=== PATIENT | male | born 1945 | race Caucasian/White ===

== ENCOUNTER 2023-06-13 07:30 | Day surgery (SDC) | payer MEDICARE ==
[~2023-06-13] VITALS: Ht 177.8 cm; Wt 67.6 kg
[2023-06-13] VITALS (12 sets, daily range): BP systolic 131–154; BP diastolic 50–88; PULSE 64–74; RESP 16–20; TEMP 97.7; O2SAT 91–100
[2023-06-13] MEDS ORDERED: CEPH-585 PO (07:59)
[2023-06-13] MEDS ORDERED: ALPR1TAB7 PO (07:59)
[2023-06-13] MEDS ORDERED: HYDR-3964 PO (07:59)
[2023-06-13] MEDS ORDERED: albumin 25% 100mL bottle x 1 IV PRN (08:00)
[2023-06-13] MEDS ORDERED: normal saline 1000ml 1,000 ML IV PRN (08:00)
[2023-06-13 08:33] LABS: BASOPHILS # (AUTO) 0.1 X10'3 (0-0.2); BASOPHILS % (AUTO) 0.6 % (0-1); EOSINOPHILS # (AUTO) 0.1 X10'3 (0-0.9); HEMOGLOBIN 8.8 g/dl (14.0-17.9); INR 1.1 INR; MONOCYTES # (AUTO) 0.6 X10'3 (0-0.9); NEUTROPHILS # (AUTO) 8.1 X10'3 (1.8-7.7); PROTHROMBIN TIME 11.4 SECONDS (9.0-12.0); RED CELL DISTRIBUTION WIDTH 16.6 % (11.5-14.5); WHITE BLOOD COUNT 10.3 X10'3 (4.5-11.0)
[2023-06-13 08:35] LABS: EOSINOPHILS % (AUTO) 0.8 % (0-6); HEMATOCRIT 28.1 % (42.0-52.0); LYMPHOCYTES # (AUTO) 1.5 X10'3 (1.1-4.8); LYMPHOCYTES % (AUTO) 14.4 % (21-51); MEAN CORPUSCULAR HEMOGLOBIN 29.6 PG (27.0-31.0); MEAN CORPUSCULAR HGB CONC 31.3 g/dL (33.0-36.5); MEAN CORPUSCULAR VOLUME 94.7 FL (78-98); MEAN PLATELET VOLUME 7.4 FL (7.4-10.4); MONOCYTES % (AUTO) 5.8 % (2-12); NEUTROPHILS % (AUTO) 78.4 % (42-75); PLATELET COUNT 740 X10'3 (140-440); RED BLOOD COUNT 2.97 X10'6 (4.70-6.10)
[2023-06-13 09:03] LABS: ANISOCYTOSIS 1+; PLATELET ESTIMATE INCREASED; POIKILOCYTOSIS FEW; STOMATOCYTES 1+
[2023-06-13 09:04] LABS: HYPOCHROMASIA 1+
[2023-06-13] MEDS ORDERED: LIDOcaine 1% 30ml preserv. free vial ONE (10:38)
[2023-06-13] MEDS ORDERED: gelatin sponge, absorbable (Gelfoam 12-7MM) sponge TP ONE (10:40)
[2023-06-13] MEDS ORDERED: midazolam 1 mg/ML 2ml injection ONE (10:40)
[2023-06-13] MEDS ORDERED: fentaNYL/PF 50MCG/1 ML 2ML syringe ONE (10:40)
[2023-06-13] MEDS ORDERED: HYDROcodone/acetaminophen 5mg/325mg tablet PO PRN ×2 (11:25)
== END 2023-06-13 12:35 | disposition home or self-care (01) ==
LOC: SSTAY O 07:30
PROVIDERS: ATTEND Radiology Vascular & Interventional Radiology
DX: C78.01 Secondary malignant neoplasm of right lung (principal); I10 Essential (primary) hypertension; J44.9 Chronic obstructive pulmonary disease, unspecified; E78.5 Hyperlipidemia, unspecified; F41.9 Anxiety disorder, unspecified; Z79.891 Long term (current) use of opiate analgesic; Z79.899 Other long term (current) drug therapy; Z98.890 Other specified postprocedural states
CPT/HCPCS: 32408; 36415; 85025; 85610; 88305; 88341; 88342; 99152; 99153; J2250; J3010; J3490; J7030; 77012; 85008; A4615

== ENCOUNTER 2023-11-05 02:38 | Emergency (ER) | payer MEDICARE ==
[2023-11-05] VITALS (13 sets, daily range): BP systolic 87–132; BP diastolic 49–67; PULSE 72–87; RESP 12–26; TEMP 97–100
[~2023-11-05] VITALS: Ht 177.8 cm; Wt 64.9 kg
[~2023-11-05 02:38] MED LIST: ALPR1TAB7 PO; ATOR20TA PO; HYDR-3964 PO; HYDR-3972 PO
[2023-11-05] MEDS: acetaminophen 650mg rectal suppository RC STA (03:28)
[2023-11-05] MEDS ORDERED: AMLO10TA13 PO (03:39)
[2023-11-05] MEDS ORDERED: PRAV20TA4 PO (03:39)
[2023-11-05 03:59] LABS: BASOPHILS % (AUTO) 0.4 % (0-1); EOSINOPHILS % (AUTO) 0.2 % (0-6); HEMATOCRIT 23.3 % (42.0-52.0); HEMOGLOBIN 7.6 g/dl (14.0-17.9); LYMPHOCYTES % (AUTO) 8.6 % (21-51); MEAN CORPUSCULAR HEMOGLOBIN 31.6 PG (27.0-31.0); MEAN CORPUSCULAR HGB CONC 32.7 g/dL (33.0-36.5); MEAN CORPUSCULAR VOLUME 96.9 FL (78-98); MEAN PLATELET VOLUME 7.3 FL (7.4-10.4); MONOCYTES # (AUTO) 0.7 X10'3 (0-0.9); MONOCYTES % (AUTO) 6.2 % (2-12); NEUTROPHILS # (AUTO) 9.6 X10'3 (1.8-7.7); NEUTROPHILS % (AUTO) 84.6 % (42-75); PLATELET COUNT 375 X10'3 (140-440); RED BLOOD COUNT 2.41 X10'6 (4.70-6.10); RED CELL DISTRIBUTION WIDTH 17.6 % (11.5-14.5); WHITE BLOOD COUNT 11.4 X10'3 (4.5-11.0)
[2023-11-05 04:17] LABS: ALBUMIN 2.8 G/DL (3.4-5.0); ANION GAP 8 (8-16); BLOOD UREA NITROGEN 24 MG/DL (7-18); BUN/CREATININE RATIO 18.5 (10.0-20.0); CALCIUM 8.5 MG/DL (8.5-10.1); CHLORIDE 105 MMOL/L (99-107); CREATINE KINASE 122 U/L (39-308); GLUCOSE 127 MG/DL (70-104); MAGNESIUM 2.1 MG/DL (1.5-2.4); POTASSIUM 4.4 MMOL/L (3.5-5.1); SODIUM 139 MMOL/L (135-145); TOTAL CARBON DIOXIDE 26.4 MMOL/L (24-32); eCRCL 44 ML/MIN; eGFR 54 ML/MIN
[2023-11-05] MEDS: normal saline 1000ML IV soln IV ONE (04:25)
[2023-11-05] MEDS: morphine 2 MG/ML inj. syringe IV ONE (04:34)
[2023-11-05 04:35] LABS: ANISOCYTOSIS 1+; PLATELET ESTIMATE NORMAL; TOTAL CELLS COUNTED 100
[2023-11-05 04:36] LABS: HYPERSEGMENTED NEUTROPHILS 2+
[2023-11-05 04:41] LABS: ACANTHOCYTES FEW; ELLIPTOCYTES FEW; POIKILOCYTOSIS FEW
[2023-11-05] MEDS ORDERED: iohexol 350 MG/ML 50ML vial IV ONE (05:38)
[2023-11-05] MEDS ORDERED: iohexol 350MG/ML 100ml bottle IV ONE (05:38)
[2023-11-05 05:39] LABS: ALANINE AMINOTRANSFERASE 12 U/L (12-78); ASPARTATE AMINO TRANSFERASE 17 U/L (10-37); PRO BRAIN NATRIURETIC PEPTIDE 365 PG/ML (0-450)
[2023-11-05] MEDS: vancomycin/NS 1 GM ADD-VANTAGE 250 ML IV ONE (06:40)
[2023-11-05 07:01] LABS: ABG BASE EXCESS -1.6 mmol/L (-2.0-2.0); ABG HCO3 21.9 mmol/L (22.0-26.0); ABG OXYGEN SATURATION 93.8 % (94-97); ABG PCO2 (T) 31.7 mmHg (35.0-48.0); ABG PH (T) 7.458 (7.340-7.440); ABG PO2 (T) 68.9 mmHg (75.0-100.0); ALLEN'S TEST POSITIVE; FCOHb 0.8 % (0.0-3.9); FHHb 6.1 % (0.0-5.0); FMetHb 0.4 % (0.0-1.5); FO2Hb 92.7 % (94-97); MODE ROOM AIR; TOTAL HEMOGLOBIN 7.1 G/dl (14.0-17.9)
[2023-11-05] MEDS: piperacillin/tazo 3.375gm/50ml 50 ML IV ONE (08:36)
[2023-11-05] MEDS: morphine 4 MG/ML inj SYRINge IV ONE ×3 (08:39→16:04)
[2023-11-05 09:27] LABS: BILIRUBIN,URINE NEGATIVE (Neg); CLARITY,URINE CLEAR (Clear); COLOR,URINE YELLOW (Yellow); GLUCOSE, URINE NEGATIVE (Neg); KETONES,URINE NEGATIVE (Neg); LEUKOCYTE ESTERASE ,URINE NEGATIVE (Neg); NITRITES, URINE NEGATIVE (Neg); OCCULT BLOOD,URINE NEGATIVE (Neg); PROTEIN,URINE NEGATIVE (Neg); UROBILINOGEN,URINE 0.2 E.U/dL (0.2-1.0)
[2023-11-05 09:40] LABS: UA COLLECTION TYPE URINAL
[2023-11-05] MEDS: normal saline 1000ml 1,000 ML IV ONE (12:37)
[2023-11-05 13:06] LABS: INR 1.1 INR; PROTHROMBIN TIME 11.4 SECONDS (9.0-12.0)
[2023-11-05] MEDS: oxyCODONE/APAP 10/325mg tablet PO ONE ×2 (18:09→21:43)
[2023-11-06] VITALS (8 sets, daily range): BP systolic 95–120; BP diastolic 46–58; PULSE 74–90; RESP 15–20; TEMP 98.2–98.9; O2SAT 97
[2023-11-06 02:44] LABS: BASOPHILS % (AUTO) 0.5 % (0-1); EOSINOPHILS # (AUTO) 0.1 X10'3 (0-0.9); EOSINOPHILS % (AUTO) 1.2 % (0-6); LYMPHOCYTES # (AUTO) 1.1 X10'3 (1.1-4.8); MEAN CORPUSCULAR HEMOGLOBIN 31.6 PG (27.0-31.0); MEAN CORPUSCULAR VOLUME 95.7 FL (78-98); MEAN PLATELET VOLUME 7.2 FL (7.4-10.4); MONOCYTES % (AUTO) 9.1 % (2-12); NEUTROPHILS # (AUTO) 8.6 X10'3 (1.8-7.7); NEUTROPHILS % (AUTO) 79.2 % (42-75); PLATELET COUNT 282 X10'3 (140-440); RED BLOOD COUNT 2.06 X10'6 (4.70-6.10); RED CELL DISTRIBUTION WIDTH 17.5 % (11.5-14.5); WHITE BLOOD COUNT 10.9 X10'3 (4.5-11.0)
[2023-11-06] MEDS: ondansetron/PF 4mg/2ml inj IV STA (02:56)
[2023-11-06] MEDS: morphine 4 MG/ML inj SYRINge IV STA (02:57)
[2023-11-06 02:59] LABS: HEMOGLOBIN 6.5 g/dl (14.0-17.9)
[2023-11-06 03:00] LABS: HEMATOCRIT 19.7 % (42.0-52.0)
[2023-11-06 03:10] LABS: APTT 32 SECONDS (22-32); PROTHROMBIN TIME 11.2 SECONDS (9.0-12.0)
[2023-11-06] MEDS: morphine 4 MG/ML inj SYRINge IV ONE ×2 (07:25→10:41)
[2023-11-06 10:47] LABS: BASOPHILS # (AUTO) 0.1 X10'3 (0-0.2); BASOPHILS % (AUTO) 0.5 % (0-1); EOSINOPHILS # (AUTO) 0.1 X10'3 (0-0.9); EOSINOPHILS % (AUTO) 1.1 % (0-6); HEMATOCRIT 26.4 % (42.0-52.0); HEMOGLOBIN 8.8 g/dl (14.0-17.9); LYMPHOCYTES # (AUTO) 0.8 X10'3 (1.1-4.8); LYMPHOCYTES % (AUTO) 8.2 % (21-51); MEAN CORPUSCULAR HEMOGLOBIN 29.1 PG (27.0-31.0); MEAN CORPUSCULAR HGB CONC 33.3 g/dL (33.0-36.5); MEAN CORPUSCULAR VOLUME 87.3 FL (78-98); MEAN PLATELET VOLUME 7.3 FL (7.4-10.4); MONOCYTES # (AUTO) 0.9 X10'3 (0-0.9); MONOCYTES % (AUTO) 8.4 % (2-12); NEUTROPHILS # (AUTO) 8.4 X10'3 (1.8-7.7); NEUTROPHILS % (AUTO) 81.8 % (42-75); PLATELET COUNT 276 X10'3 (140-440); RED BLOOD COUNT 3.02 X10'6 (4.70-6.10); RED CELL DISTRIBUTION WIDTH 23.3 % (11.5-14.5); WHITE BLOOD COUNT 10.3 X10'3 (4.5-11.0)
== END 2023-11-06 12:55 ==
LOC: ER 02:39
DX: S70.11XA Contusion of right thigh, initial encounter (principal); S30.0XXA Contusion of lower back and pelvis, initial encounter; S70.12XA Contusion of left thigh, initial encounter; D68.9 Coagulation defect, unspecified; I11.0 Hypertensive heart disease with heart failure; I50.9 Heart failure, unspecified; E78.00 Pure hypercholesterolemia, unspecified; Z79.899 Other long term (current) drug therapy; Z79.1 Long term (current) use of non-steroidal anti-inflammatories (NSAID); X58.XXXA Exposure to other specified factors, initial encounter; Y93.89 Activity, other specified; Y92.89 Other specified places as the place of occurrence of the external cause; Y99.8 Other external cause status
CPT/HCPCS: 36415; 36430; 36600; 71045; 75635; 80048; 81003; 82550; 82803; 83605; 83735; 83880; 84145; 84450; 84460; 84484; 85007; 85018; 85025; 85610; 85730; 86885; 86900; 86901; 86920; 87040; 93005; 93926; 93971; 96361; 96365; 96375; 96376; 99285; J2270; J2405; J2543; J3370; J3490; J7030; J7040; J7050; P9016; P9059; Q9967; A4615

== ENCOUNTER 2024-05-06 17:46 | Emergency (ER) | payer MEDICARE ==
[~2024-05-06] VITALS: Ht 177.8 cm; Wt 58.8 kg
[~2024-05-06 17:46] MED LIST changes: +ACET-1008 PO; -ATOR20TA PO; +BISA-111 PO; +CYAN-104 PO; +DOXY-1 PO; +FOLI1TAB27 PO; +GABA-535 PO; -HYDR-3964 PO; -HYDR-3972 PO; +LINE600T14 PO; +MAGN400O6 PO; +MIDO5TAB4 PO; +MULT-1249 PO; +OXYC20TA55 PO; +SENN-267 PO
[2024-05-06] MEDS ORDERED: tranexamic acid inj. 1,000 MG in normal saline 100ml IV soln 90 ML IV ONE (18:00)
[2024-05-06] MEDS: ondansetron/PF 4mg/2ml inj IV ONE ×2 (18:05→18:11)
[2024-05-06] MEDS: tranexamic acid 1gm/0.7% sal. 100 ML IV ONE (18:10)
[2024-05-06] MEDS: HYDROmorphone 1 mg/ml syringe IV ONE ×2 (18:11→19:19)
[2024-05-06 18:27] LABS: BASOPHILS % (AUTO) 0.3 % (0-1); EOSINOPHILS # (AUTO) 0.1 X10'3 (0-0.9); HEMATOCRIT 24.7 % (42.0-52.0); HEMOGLOBIN 8.3 g/dl (14.0-17.9); LYMPHOCYTES # (AUTO) 0.5 X10'3 (1.1-4.8); LYMPHOCYTES % (AUTO) 6.5 % (21-51); MEAN CORPUSCULAR HEMOGLOBIN 32.9 PG (27.0-31.0); MEAN CORPUSCULAR HGB CONC 33.4 g/dL (33.0-36.5); MEAN CORPUSCULAR VOLUME 98.6 FL (78-98); MONOCYTES # (AUTO) 0.7 X10'3 (0-0.9); MONOCYTES % (AUTO) 8.2 % (2-12); NEUTROPHILS # (AUTO) 6.8 X10'3 (1.8-7.7); PLATELET COUNT 442 X10'3 (140-440); RED BLOOD COUNT 2.51 X10'6 (4.70-6.10); RED CELL DISTRIBUTION WIDTH 20.6 % (11.5-14.5); WHITE BLOOD COUNT 8.1 X10'3 (4.5-11.0)
[2024-05-06 18:34] LABS: ALANINE AMINOTRANSFERASE 68 U/L (12-78); ALBUMIN 2.2 G/DL (3.4-5.0); ALBUMIN/GLOBULIN RATIO 0.5 (1.1-1.5); ALKALINE PHOSPHATASE 166 IU/L (46-116); ANION GAP 6 (8-16); ASPARTATE AMINO TRANSFERASE 33 U/L (10-37); BILIRUBIN,TOTAL 0.3 MG/DL (0.1-1.0); BLOOD UREA NITROGEN 19 MG/DL (7-18); BUN/CREATININE RATIO 21.3 (10.0-20.0); CALCIUM 8.6 MG/DL (8.5-10.1); CHLORIDE 104 MMOL/L (99-107); CREATININE 0.89 MG/DL (0.60-1.10); GLUCOSE 158 MG/DL (70-104); POTASSIUM 3.8 MMOL/L (3.5-5.1); SODIUM 140 MMOL/L (135-145); TOTAL CARBON DIOXIDE 29.8 MMOL/L (24-32); TOTAL PROTEIN 6.8 G/DL (6.4-8.2); eCRCL 59 ML/MIN; eGFR 83 ML/MIN
[2024-05-06 19:03] LABS: APTT 29 SECONDS (22-32); INR 1.1 INR; PROTHROMBIN TIME 11.2 SECONDS (9.0-12.0)
[2024-05-06] MEDS: oxyCODONE/APAP 10/325mg tablet PO ONE (20:05)
[2024-05-06 20:48] LABS: TOTAL CELLS COUNTED 100
[2024-05-06 20:49] LABS: ANISOCYTOSIS 3+; PLATELET ESTIMATE INCREASED
[2024-05-06 20:57] LABS: SCHISTOCYTES 1+
[2024-05-06] MEDS: HYDROmorphone 1 mg/ml syringe IV PRN (22:09)
[2024-05-07 02:54] VITALS: BP 138/62; PULSE 73; RESP 15; TEMP 98.9
[2024-05-07 05:58] LABS: BILIRUBIN,URINE NEGATIVE (Neg); CLARITY,URINE TURBID (Clear); COLOR,URINE YELLOW (Yellow); GLUCOSE, URINE NEGATIVE (Neg); KETONES,URINE NEGATIVE (Neg); LEUKOCYTE ESTERASE ,URINE MODERATE (Neg); NITRITES, URINE POSITIVE (Neg); OCCULT BLOOD,URINE SMALL (Neg); PROTEIN,URINE 30 mg/dl (Neg); UROBILINOGEN,URINE 0.2 E.U/dL (0.2-1.0)
[2024-05-07 06:06] LABS: UA COLLECTION TYPE URINAL
[2024-05-07 06:08] LABS: BACTERIA,URINE 3+ /HPF (Neg); WBC,URINE TNTC /HPF (0-4)
[2024-05-07 06:09] LABS: SQUAMOUS EPITHELIAL CELL,UR MODERATE /LPF (FEW)
[2024-05-07 06:10] LABS: CAL OXALATE CRYSTALS FEW /HPF (NEGATIVE); RBC,URINE 0-2 /HPF (0-2)
[2024-05-07] MEDS: tranexamic acid 1gm/0.7% sal. 100 ML IV ONE (06:30)
[2024-05-07] MEDS ORDERED: HYDROmorphone 1 mg/ml syringe IV PRN (08:30)
[2024-05-07] MEDS: [UNRECOGNIZED DRUG - OTHER] IV ONE (08:43)
[2024-05-07] MEDS: HYDROmorphone inj. 0.5 MG/0.5 ML DISP.SYRIN IV PRN (09:23)
[2024-05-07] MEDS: oxyCODONE/APAP 10/325mg tablet PO ONE (15:36)
[2024-05-07] MEDS: cefuroxime axetil 250mg tablet PO SCH (15:41)
[2024-05-07] MEDS ORDERED: iohexol 300mg/ml 100ml inj. ONE (17:30)
[2024-05-07] MEDS: HYDROmorphone inj. 0.5 MG/0.5 ML DISP.SYRIN IV ONE (19:19)
[2024-05-07 19:26] VITALS: BP 119/55; PULSE 77; RESP 20; TEMP 97.7; O2SAT 98
== END 2024-05-07 19:29 | disposition short-term general hospital (02) ==
LOC: ER 17:46
DX: S10.83XA Contusion of other specified part of neck, initial encounter (principal); I11.0 Hypertensive heart disease with heart failure; I50.9 Heart failure, unspecified; E78.00 Pure hypercholesterolemia, unspecified; I25.2 Old myocardial infarction; D64.9 Anemia, unspecified; F41.9 Anxiety disorder, unspecified; Z79.899 Other long term (current) drug therapy; X58.XXXA Exposure to other specified factors, initial encounter; Y93.89 Activity, other specified; Y92.89 Other specified places as the place of occurrence of the external cause; Y99.8 Other external cause status
CPT/HCPCS: 36415; 36430; 70491; 71045; 80053; 81001; 85007; 85025; 85610; 85730; 86885; 86900; 86901; 87077; 87088; 87186; 96365; 96366; 96375; 96376; 99285; J1170; J2405; J3490; J7030; J7189; P9059; Q9967

== ENCOUNTER 2024-05-26 01:07 | Inpatient (IN) | payer MEDICARE ==
[~2024-05-26] VITALS: Ht 177.8 cm; Wt 60.0 kg
[~2024-05-26 01:07] MED LIST changes: -DOXY-1 PO; -GABA-535 PO; -MAGN400O6 PO; -MIDO5TAB4 PO; -OXYC20TA55 PO; -SENN-267 PO
[2024-05-26] MEDS: oxyCODONE/APAP 10/325mg tablet PO ONE (01:42)
[2024-05-26] MEDS: tranexamic acid inj. 1,000 MG in normal saline 100ml IV soln 90 ML IV ONE (01:51)
[2024-05-26 01:52] LABS: ALANINE AMINOTRANSFERASE 16 U/L (12-78); ALBUMIN 2.7 G/DL (3.4-5.0); ALBUMIN/GLOBULIN RATIO 0.6 (1.1-1.5); ALKALINE PHOSPHATASE 136 IU/L (46-116); ANION GAP 5 (8-16); ASPARTATE AMINO TRANSFERASE 21 U/L (10-37); BILIRUBIN,TOTAL 0.4 MG/DL (0.1-1.0); BLOOD UREA NITROGEN 20 MG/DL (7-18); BUN/CREATININE RATIO 24.7 (10.0-20.0); CALCIUM 8.9 MG/DL (8.5-10.1); CHLORIDE 103 MMOL/L (99-107); CREATININE 0.81 MG/DL (0.60-1.10); GLUCOSE 90 MG/DL (70-104); POTASSIUM 4.8 MMOL/L (3.5-5.1); SODIUM 138 MMOL/L (135-145); TOTAL CARBON DIOXIDE 30.2 MMOL/L (24-32); TOTAL PROTEIN 7.1 G/DL (6.4-8.2); eCRCL 66 ML/MIN; eGFR > 90 ML/MIN
[2024-05-26] MEDS ORDERED: potassium Cl 40MEQ/1/2NS 520ml 520 ML IV PRN (02:00)
[2024-05-26] MEDS ORDERED: potassium Cl 20 mEq SR tablet PO PRN ×2 (02:00)
[2024-05-26] MEDS ORDERED: oxyCODONE/APAP 5-325mg tablet PO PRN (02:00)
[2024-05-26] MEDS ORDERED: mag hydrox/Alum hydrox/simeth 30ml oral suspension PO PRN (02:00)
[2024-05-26] MEDS ORDERED: acetaminophen 325mg tablet PO PRN (02:00)
[2024-05-26] MEDS ORDERED: magnesium sulf-water 4G/100mL 100 ML IV PRN (02:00)
[2024-05-26] MEDS ORDERED: magnesium hydroxide 30ml (MOM) UD suspension PO PRN (02:00)
[2024-05-26] MEDS ORDERED: magnesium Cl slow-release 64mg tablet PO PRN (02:00)
[2024-05-26] MEDS ORDERED: magnesium sulf-water 2g/50mL 50 ML IV PRN (02:00)
[2024-05-26] MEDS ORDERED: MIRT7.5T11 PO (02:15)
[2024-05-26] MEDS ORDERED: HYDR-3964 PO (02:15)
[2024-05-26] MEDS ORDERED: TRAN650T5 PO (02:15)
[2024-05-26] MEDS: HYDROmorphone inj. 0.5 MG/0.5 ML DISP.SYRIN IV PRN (02:49)
[2024-05-26 03:08] LABS: BASOPHILS % (AUTO) 0.6 % (0-1); EOSINOPHILS # (AUTO) 0.3 X10'3 (0-0.9); EOSINOPHILS % (AUTO) 5.1 % (0-6); HEMATOCRIT 24.1 % (42.0-52.0); HEMOGLOBIN 7.9 g/dl (14.0-17.9); LYMPHOCYTES # (AUTO) 0.7 X10'3 (1.1-4.8); LYMPHOCYTES % (AUTO) 14.1 % (21-51); MEAN CORPUSCULAR HEMOGLOBIN 33.5 PG (27.0-31.0); MEAN CORPUSCULAR HGB CONC 32.9 g/dL (33.0-36.5); MEAN CORPUSCULAR VOLUME 101.7 FL (78-98); MEAN PLATELET VOLUME 7.2 FL (7.4-10.4); MONOCYTES # (AUTO) 0.5 X10'3 (0-0.9); MONOCYTES % (AUTO) 10.8 % (2-12); NEUTROPHILS # (AUTO) 3.5 X10'3 (1.8-7.7); NEUTROPHILS % (AUTO) 69.4 % (42-75); PLATELET COUNT 369 X10'3 (140-440); RED BLOOD COUNT 2.37 X10'6 (4.70-6.10); RED CELL DISTRIBUTION WIDTH 20.7 % (11.5-14.5); WHITE BLOOD COUNT 5.1 X10'3 (4.5-11.0)
[2024-05-26 03:20] LABS: APTT 21 SECONDS (22-32); PROTHROMBIN TIME 10.9 SECONDS (9.0-12.0)
[2024-05-26 03:34] LABS: ANISOCYTOSIS 3+; ELLIPTOCYTES FEW; PLATELET ESTIMATE NORMAL; STOMATOCYTES 1+
[2024-05-26] MEDS: oxyCODONE/APAP 10/325mg tablet PO PRN (04:47)
[2024-05-26] MEDS: K and/or MAG REPLACEMENT MC SCH (06:52)
[2024-05-26] MEDS: docusate sod 100mg capsule PO SCH (07:27)
[2024-05-26] MEDS: ondansetron/PF 4mg/2ml inj IV PRN (07:27)
[2024-05-26] MEDS: folic acid 1mg tablet PO SCH (07:27)
[2024-05-26] MEDS: tranexamic acid inj. 1,000 MG in normal saline 100ml IV soln 90 ML IV SCH (07:39)
[2024-05-26] MEDS: sodium ferric gluc complex inj 125 MG in normal saline 100ml IV soln 100 ML IV SCH (08:26)
[2024-05-26] MEDS: HYDROmorphone/PF 0.2 MG/ML SYRINGE IV PRN (11:29)
[2024-05-26 14:00] VITALS: BP 134/60; PULSE 77; RESP 16; TEMP 98.2; O2SAT 100; O2SAT 95
[2024-05-26 18:00] VITALS: BP 140/67; PULSE 87; RESP 17; TEMP 98.6; O2SAT 95
[2024-05-26 18:11] LABS: MEAN CORPUSCULAR HEMOGLOBIN 33.9 PG (27.0-31.0); MEAN CORPUSCULAR HGB CONC 33.7 g/dL (33.0-36.5); MEAN CORPUSCULAR VOLUME 100.7 FL (78-98); MEAN PLATELET VOLUME 6.9 FL (7.4-10.4); PLATELET COUNT 326 X10'3 (140-440); RED BLOOD COUNT 1.98 X10'6 (4.70-6.10); WHITE BLOOD COUNT 6.5 X10'3 (4.5-11.0)
[2024-05-26 18:22] LABS: HEMOGLOBIN 6.7 g/dl (14.0-17.9)
[2024-05-26] MEDS: mirtazapine 15mg tablet PO SCH (20:00)
[2024-05-26] MEDS: ALPRAZolam 0.5mg tablet PO SCH (20:00)
[2024-05-26 21:15] VITALS: BP 131/58; PULSE 70; RESP 18; TEMP 98.2
[2024-05-26 22:00] VITALS: BP_SYST 130; BP_SYST 142; BP_DIAS 58; BP_DIAS 68; PULSE 76; PULSE 78; RESP 18; TEMP 97.8; TEMP 98.5; O2SAT 97
[2024-05-26 23:00] VITALS: BP 141/61; PULSE 68; RESP 20; TEMP 98.4
[2024-05-27] VITALS: BP 137/78; PULSE 76; RESP 18; TEMP 98.2
[2024-05-27 02:00] VITALS: BP 145/68; PULSE 76; RESP 16; TEMP 97.8; O2SAT 95
[2024-05-27 06:00] VITALS: BP 145/58; PULSE 74; RESP 18; TEMP 98.2; O2SAT 93
[2024-05-27 07:04] LABS: BASOPHILS % (AUTO) 0.9 % (0-1); EOSINOPHILS # (AUTO) 0.3 X10'3 (0-0.9); EOSINOPHILS % (AUTO) 6.4 % (0-6); HEMATOCRIT 24.2 % (42.0-52.0); LYMPHOCYTES # (AUTO) 0.7 X10'3 (1.1-4.8); LYMPHOCYTES % (AUTO) 15.2 % (21-51); MEAN CORPUSCULAR HEMOGLOBIN 33.7 PG (27.0-31.0); MEAN CORPUSCULAR HGB CONC 33.2 g/dL (33.0-36.5); MEAN CORPUSCULAR VOLUME 101.3 FL (78-98); MEAN PLATELET VOLUME 7.1 FL (7.4-10.4); MONOCYTES # (AUTO) 0.6 X10'3 (0-0.9); MONOCYTES % (AUTO) 13.5 % (2-12); NEUTROPHILS # (AUTO) 2.9 X10'3 (1.8-7.7); PLATELET COUNT 306 X10'3 (140-440); RED BLOOD COUNT 2.39 X10'6 (4.70-6.10); RED CELL DISTRIBUTION WIDTH 19.6 % (11.5-14.5); WHITE BLOOD COUNT 4.6 X10'3 (4.5-11.0)
[2024-05-27 07:11] LABS: ALBUMIN 2.5 G/DL (3.4-5.0); ANION GAP 5 (8-16); BLOOD UREA NITROGEN 17 MG/DL (7-18); BUN/CREATININE RATIO 21.8 (10.0-20.0); CHLORIDE 104 MMOL/L (99-107); CREATININE 0.78 MG/DL (0.60-1.10); GLUCOSE 90 MG/DL (70-104); MAGNESIUM 1.8 MG/DL (1.5-2.4); POTASSIUM 4.1 MMOL/L (3.5-5.1); SODIUM 138 MMOL/L (135-145); TOTAL CARBON DIOXIDE 29.3 MMOL/L (24-32); eCRCL 68 ML/MIN; eGFR > 90 ML/MIN
[2024-05-27 09:15] VITALS: RESP 16; O2SAT 97
[2024-05-27 10:00] VITALS: BP 131/60; PULSE 76; RESP 12; TEMP 98; O2SAT 97
[2024-05-27 10:12] LABS: HEMATOCRIT 25.4 % (42.0-52.0); HEMOGLOBIN 8.2 g/dl (14.0-17.9); MEAN CORPUSCULAR HEMOGLOBIN 33.3 PG (27.0-31.0); MEAN CORPUSCULAR HGB CONC 32.1 g/dL (33.0-36.5); MEAN CORPUSCULAR VOLUME 103.8 FL (78-98); MEAN PLATELET VOLUME 6.9 FL (7.4-10.4); PLATELET COUNT 315 X10'3 (140-440); RED BLOOD COUNT 2.45 X10'6 (4.70-6.10); RED CELL DISTRIBUTION WIDTH 19.8 % (11.5-14.5); WHITE BLOOD COUNT 4.7 X10'3 (4.5-11.0)
[2024-05-27] MEDS ORDERED: iohexol 300mg/ml 100ml inj. ONE (10:20)
[2024-05-27 13:16] VITALS: RESP 16
== END 2024-05-27 15:40 | disposition home or self-care (01) | DRG 605 ==
LOC: ER 01:07 → ED HOLD 02:13 → PCU 3S 13:07
PROVIDERS: ADMIT Surgery Surgical Critical Care; ATTEND Internal Medicine
PROC: 30233K1 Transfusion of Nonautologous Frozen Plasma into Peripheral Vein, Percutaneous Approach (ICD-10-PCS; principal; 2024-05-26)
PROC: 30233N1 Transfusion of Nonautologous Red Blood Cells into Peripheral Vein, Percutaneous Approach (ICD-10-PCS; 2024-05-26)
PROC: 30233M1 Transfusion of Nonautologous Plasma Cryoprecipitate into Peripheral Vein, Percutaneous Approach (ICD-10-PCS; 2024-05-26)
DX: S40.022A Contusion of left upper arm, initial encounter (principal); D68.2 Hereditary deficiency of other clotting factors; E44.0 Moderate protein-calorie malnutrition; Z68.1 Body mass index [BMI] 19.9 or less, adult; S20.212A Contusion of left front wall of thorax, initial encounter; I50.9 Heart failure, unspecified; E78.00 Pure hypercholesterolemia, unspecified; F41.9 Anxiety disorder, unspecified; I11.0 Hypertensive heart disease with heart failure; X58.XXXA Exposure to other specified factors, initial encounter; D50.9 Iron deficiency anemia, unspecified; Y93.89 Activity, other specified; Y92.89 Other specified places as the place of occurrence of the external cause; Z85.118 Personal history of other malignant neoplasm of bronchus and lung; Z79.899 Other long term (current) drug therapy; I25.2 Old myocardial infarction; Y99.8 Other external cause status; Z91.148 Patient's other noncompliance with medication regimen for other reason
CPT/HCPCS: 36415; 36430; 71045; 80048; 80053; 83735; 85008; 85025; 85027; 85610; 85730; 86885; 86900; 86901; 86920; 87081; 93005; 99285; A6213; G0378; J1170; J2405; J2916; J3490; J7040; J7050; P9012; P9016; P9059; Q9967

== ENCOUNTER 2024-06-25 07:49 | Emergency (ER) | payer MEDICARE ==
[~2024-06-25] VITALS: Ht 170.2 cm; Wt 65.0 kg
[~2024-06-25 07:49] MED LIST changes: -CYAN-104 PO; -FOLI1TAB27 PO; +HYDR-3964 PO; -LINE600T14 PO; +MIRT7.5T11 PO; -MULT-1249 PO; +TRAN650T5 PO
[2024-06-25] MEDS ORDERED: succinylcholine 20mg/ml inj IV ONE (07:57)
[2024-06-25] MEDS ORDERED: atropine 0.1mg/ml 10ml syringe ONE (08:00)
[2024-06-25 08:05] LABS: BASOPHILS % (AUTO) 0.7 % (0-1); EOSINOPHILS % (AUTO) 0.1 % (0-6); HEMATOCRIT 31.1 % (42.0-52.0); HEMOGLOBIN 10.2 g/dl (14.0-17.9); LYMPHOCYTES # (AUTO) 0.3 X10'3 (1.1-4.8); LYMPHOCYTES % (AUTO) 4.8 % (21-51); MEAN CORPUSCULAR HEMOGLOBIN 33.8 PG (27.0-31.0); MEAN CORPUSCULAR HGB CONC 32.9 g/dL (33.0-36.5); MEAN CORPUSCULAR VOLUME 102.7 FL (78-98); MONOCYTES # (AUTO) 0.6 X10'3 (0-0.9); MONOCYTES % (AUTO) 10.3 % (2-12); NEUTROPHILS # (AUTO) 5.2 X10'3 (1.8-7.7); NEUTROPHILS % (AUTO) 84.1 % (42-75); PLATELET COUNT 459 X10'3 (140-440); RED BLOOD COUNT 3.03 X10'6 (4.70-6.10); RED CELL DISTRIBUTION WIDTH 18.1 % (11.5-14.5); WHITE BLOOD COUNT 6.2 X10'3 (4.5-11.0)
[2024-06-25] MEDS ORDERED: propofol 1000mg/100ml bottle 100 ML IV SCH (08:05)
[2024-06-25] MEDS ORDERED: atropine 1 MG/1 ML vial IV ONE (08:05)
[2024-06-25] MEDS ORDERED: iohexol 350MG/ML 100ml bottle IV ONE (08:05)
[2024-06-25 08:13] VITALS: PULSE 43; RESP 16; O2SAT 93
[2024-06-25 08:14] LABS: ALBUMIN 3.6 G/DL (3.4-5.0); ANION GAP 5 (8-16); BLOOD UREA NITROGEN 11 MG/DL (7-18); BUN/CREATININE RATIO 14.3 (10.0-20.0); CALCIUM 9.1 MG/DL (8.5-10.1); CHLORIDE 97 MMOL/L (99-107); CREATININE 0.77 MG/DL (0.60-1.10); GLUCOSE 192 MG/DL (70-104); POTASSIUM 3.8 MMOL/L (3.5-5.1); SODIUM 133 MMOL/L (135-145); TOTAL CARBON DIOXIDE 30.6 MMOL/L (24-32); eCRCL 75 ML/MIN; eGFR > 90 ML/MIN
[2024-06-25 08:20] LABS: APTT 25 SECONDS (22-32); INR 1.1 INR; PROTHROMBIN TIME 11.4 SECONDS (9.0-12.0)
[2024-06-25] MEDS ORDERED: tranexamic acid inj. 1,000 MG in normal saline 100ml IV soln 90 ML IV ONE (08:45)
[2024-06-25 08:47] LABS: ABG BASE EXCESS 0.6 mmol/L (-2.0-3.0); ABG HCO3 24.5 mmol/L (21.0-28.0); ABG OXYGEN SATURATION 87.8 % (94.0-98.0); ABG PCO2 (T) 31.7 mmHg (35.0-48.0); ABG PH (T) 7.493 (7.350-7.450); ALLEN'S TEST POSITIVE; FCOHb 0.4 % (0.5-1.5); FHHb 12.1 % (0.0-5.0); FMetHb 0.3 % (0.0-1.5); FO2Hb 87.2 % (94.0-98.0); MODE VENT - AC; PATIENT TEMPERATURE 33.8; PEEP 5 cm H2O; RESPIRATORY RATE 16 b/min; TIDAL VOLUME 450 mL; TOTAL HEMOGLOBIN 9.8 G/dl (13.5-17.5)
[2024-06-25 08:52] LABS: TRIGLYCERIDES 122 MG/DL (20-135)
[2024-06-25 09:06] VITALS: PULSE 49; RESP 20; O2SAT 99
[2024-06-25] MEDS: tranexamic acid 100mg/ml inj. IV ONE (09:14)
[2024-06-25] MEDS: tranexamic acid 1gm/0.7% sal. 100 ML IV ONE (09:27)
[2024-06-25] MEDS: HYDROmorphone 1 mg/ml syringe IV ONE (11:02)
[2024-06-25] MEDS: ondansetron/PF 4mg/2ml inj IV ONE (11:02)
[2024-06-25] MEDS ORDERED: morphine 10mg/ml inj. IV PRN (11:15)
[2024-06-25] MEDS: LORazepam 2 mg/ml vial IV PRN (11:24)
[2024-06-25 11:47] VITALS: TEMP 93
[2024-06-25] MEDS ORDERED: LORazepam 2 mg/ml vial IV ONE (12:00)
[2024-06-25 13:31] VITALS: BP 0/0; PULSE 0; RESP 0; O2SAT 0
== END 2024-06-25 13:32 ==
LOC: ER 07:49
DX: I62.9 Nontraumatic intracranial hemorrhage, unspecified (principal); I11.0 Hypertensive heart disease with heart failure; I50.9 Heart failure, unspecified; E78.00 Pure hypercholesterolemia, unspecified; I25.2 Old myocardial infarction; D64.9 Anemia, unspecified; F41.9 Anxiety disorder, unspecified; Z79.899 Other long term (current) drug therapy
CPT/HCPCS: 31500; 36415; 36430; 36600; 70450; 71045; 80048; 82803; 84478; 85018; 85025; 85610; 85730; 86885; 86900; 86901; 87070; 87077; 87186; 93005; 94002; 96365; 96366; 96375; 96376; 99285; A4615; C1758; J0330; J0461; J1171; J2060; J2405; J3490; J7030; J7040; P9059; Z7610; 94760; Q9967